=== PATIENT | female | born 1985 | race Caucasian/White ===

== ENCOUNTER 2019-12-11 17:27 | Emergency (ER) | payer SELFPAY ==
[2019-12-11 17:34] VITALS: BP 149/102; PULSE 84; RESP 18; TEMP 35.3; O2SAT 96
--- NOTE | 2019-12-11 18:02 | ED.GENADULT ---
HPI - General Adult General Chief complaint: Unspecified Stated complaint: food bolus stuck Time Seen by Provider: 12/11/19 17:42 Source: patient Mode of arrival: ambulatory Limitations: no limitations History of Present Illness HPI narrative: This is a 34-year-old female that presents the emergency department for feeling of food being stuck. Reports she was eating a piece of chocolate cake and feels like a piece of it is stuck in her throat. She has been able to drink water since. Denies any chest pain, abdominal pain, or vomiting. Related Data Allergies Allergy/AdvReac Type Severity Reaction Status Date / Time No Known Allergies Verified 06/27/10 14:48 Review of Systems Review of Systems: Narrative: CONSTITUTIONAL: Denies fever CARDIOVASCULAR: Denies chest pain GASTROINTESTINAL: Denies abdominal pain, nausea, vomiting All systems reviewed & are unremarkable except as noted in HPI and below PMFSH Family History Family History (Updated 10/05/13 @ 07:13 by DOCTOR UNKNOWN) Mother Family history of gallbladder disease Family history of rheumatoid arthritis Father Family history of gallbladder disease Sibling Family history of ulcerative colitis Other Diabetes mellitus Social History Social History Alcohol intake: current Gender identity (if verbalized by the patient): Female Exam Narrative: Exam Narrative: GENERAL: Well-appearing, well-nourished, and in no acute distress. HEAD: Normocephalic, atraumatic. EYES: EOMI. ENT: Mucous membranes moist. Oropharynx without tonsillar hypertrophy exudate or other lesions. NECK: Supple. No adenopathy or masses. CHEST: Clear to auscultation. No respiratory distress. No wheezes rales or rhonchi HEART: Regular rate and rhythm. No murmur heard. Normal peripheral pulses. EXTREMITIES: Normal range of motion. No edema. SKIN: Warm, dry, no rash. NEURO: No focal deficits. Alert and oriented x3. PSYCH: Normal mood and affect Course Vital Signs Vital signs: Vital Signs Temperature 95.5 F L 12/11/19 17:34 Pulse Rate 84 12/11/19 17:34 Respiratory Rate 18 12/11/19 17:34 Blood Pressure 149/102 H 12/11/19 17:34 Pulse Oximetry 96 12/11/19 17:34 Temperature 95.5 F L 12/11/19 17:34 Pulse Rate 84 12/11/19 17:34 Respiratory Rate 18 12/11/19 17:34 Blood Pressure 149/102 H 12/11/19 17:34 Pulse Oximetry 96 12/11/19 17:34 Medical Decision Making MDM Narrative Medical decision making narrative: Patient presents to the emergency department for feeling of food impaction. Reported she felt like something was stuck in her throat. She is able to tolerate secretions. She was able to drink Sprite without vomiting. Patient is stable and felt appropriate for further outpatient evaluation. She was given warnings to return to the ER Vital Signs Vital Signs: Vital Signs Temperature 95.5 F L 12/11/19 17:34 Pulse Rate 84 12/11/19 17:34 Respiratory Rate 18 12/11/19 17:34 Blood Pressure 149/102 H 12/11/19 17:34 Pulse Oximetry 96 12/11/19 17:34 Temperature 95.5 F L 12/11/19 17:34 Pulse Rate 84 12/11/19 17:34 Respiratory Rate 18 12/11/19 17:34 Blood Pressure 149/102 H 12/11/19 17:34 Pulse Oximetry 96 12/11/19 17:34 Critical Care Time Critical Care Time Critical Care Time: No Discharge Plan Discharge Clinical Impression: Feeling of foreign body in throat Patient Disposition: Home, Self-Care Condition: Stable Instructions: Food Impaction (ED) Additional Instructions: Return to the emergency department if you experience fever, vomiting, trouble swallowing, chest pain, or any other symptoms that are concerning to you Remain well-hydrated Follow-up with gastroenterology Follow-up/Referrals: Brian Villanueva MD [Physician] - 1 Day PHYSICIAN,VALIDATION ANALYST [Primary Care Provider] -
[2019-12-11] MEDS: GLUCAGON FOR INJ 1 MG VIAL IM (18:27)
--- NOTE | 2019-12-11 19:15 | PC.NURSE ---
Addendum entered by Mervat Gabriel RN 12/11/19 19:16: Report from YAMILE Mejia Original Note: Assumed care of pt. at this time. Report from YAMILE Samuel
[2019-12-11 19:25] VITALS: BP 131/77; PULSE 100; RESP 15; O2SAT 99
== END 2019-12-11 19:25 | disposition home or self-care (01) ==
PROVIDERS: Emergency Provider Emergency Medicine
DX: R09.89 Other specified symptoms and signs involving the circulatory and respiratory systems (principal)
CPT/HCPCS: 96372; 99283; J1610

== ENCOUNTER 2023-04-02 11:09 | Emergency (ER) | payer MEDICAID, SELFPAY ==
[2023-04-02 11:46] VITALS: BP 154/89; PULSE 82; RESP 16; TEMP 37.1; O2SAT 98
--- NOTE | 2023-04-02 12:06 | ED.URI ---
HPI - URI/Sore Throat General Chief Complaint: Upper Respiratory Infection Stated Complaint: sick, ear pressure Time Seen by Provider: 04/02/23 11:52 Source: patient and RN notes reviewed Mode of arrival: ambulatory Limitations: no limitations History of Present Illness HPI Narrative: Patient presents today with a 4 day history of intermittent sore throat, congestion and sinus pressure, slight cough, left ear pain. Denies fever shortness of breath. She is currently pain-free. She has tried no medication for symptoms prior to arrival. Daughter sick with similar symptoms. Related Data Home Medications Medication Instructions Recorded Confirmed bupropion HCl 300 mg 24 hr tablet, 300 mg PO DAILY 04/02/23 04/02/23 extended release cariprazine 3 mg capsule (Vraylar) 3 mg PO DAILY 04/02/23 04/02/23 sertraline 100 mg tablet 200 mg PO DAILY 04/02/23 04/02/23 Allergies Allergy/AdvReac Type Severity Reaction Status Date / Time No Known Allergies Verified 04/02/23 11:58 Review of Systems Review of Systems: CONSTITUTIONAL: Denies body aches, fever, chills, or sweats. EYES: Denies visual changes, redness, or discharge. ENT: Denies rhinorrhea. + congestion, sinus pressure, sore throat, left ear pain CARDIOVASCULAR: Denies chest pain, palpitations, or edema. RESPIRATORY: Denies dyspnea.+ cough GASTROINTESTINAL: Denies abdominal pain, nausea, vomiting, or diarrhea. GENITOURINARY: Denies dysuria or hematuria. SKIN: Denies rash, itching, or wounds. MUSCULOSKELETAL: Denies back pain, joint pain, or myalgia. NEUROLOGIC: Denies headache, numbness, tingling, or weakness. PSYCH: Denies depression or anxiety. [facility] Family History Family History Mother Family history of gallbladder disease Family history of rheumatoid arthritis Father Family history of gallbladder disease Sibling Family history of ulcerative colitis Other Diabetes mellitus Social History Social History Alcohol intake: current Gender identity (if verbalized by the patient): Female Comments At time of signature, I have reviewed and agree with nursing past medical, surgical, social and family history unless otherwise noted. Please see nursing chart for further information. There is no relevant family history pertinent to the presenting complaint Exam Narrative: GENERAL: Mildly ill-appearing, well-nourished, and in no acute distress. HEAD: Normocephalic, atraumatic. EYES: EOMI. No redness or drainage. Conjunctivae normal. ENT: Mucous membranes pink and moist. Nares congested. No rhinorrhea. Right TM normal. Left TM erythematous and bulging with purulent material. Throat normal. Uvula midline. NECK: Normal AROM. Supple. No lymphadenopathy. CHEST: No respiratory distress. Clear to auscultation. HEART: Regular rate and rhythm. No murmur appreciated. EXTREMITIES: Normal range of motion. No edema. SKIN: Warm, dry, no rash. Capillary refill normal. Normal skin turgor. NEURO: No focal deficits. Alert and oriented x3. Gait steady. PSYCH: Normal affect. No signs of depression or anxiety. Course Course Level of Care: Express Care Visit Vital Signs Vital signs: Vital Signs Temperature 98.7 F 04/02/23 11:46 Pulse Rate 82 04/02/23 11:46 Respiratory Rate 16 04/02/23 11:46 Blood Pressure 154/89 H 04/02/23 11:46 Pulse Oximetry 98 04/02/23 11:46 Oxygen Delivery Room Air 04/02/23 11:46 Temperature 98.7 F 04/02/23 11:46 Pulse Rate 82 04/02/23 11:46 Respiratory Rate 16 04/02/23 11:46 Blood Pressure 154/89 H 04/02/23 11:46 Pulse Oximetry 98 04/02/23 11:46 Oxygen Delivery Room Air 04/02/23 11:46 Reviewed MDM - URI/Sore Throat MDM Narrative Medical decision making narrative: Testing is negative. Exam consistent with left otitis media and patient will be treated with
== END 2023-04-02 12:30 | disposition home or self-care (01) ==
PROVIDERS: Emergency Provider Nurse Practitioner
DX: J06.9 Acute upper respiratory infection, unspecified (principal); H66.002 Acute suppurative otitis media without spontaneous rupture of ear drum, left ear; Z20.822 Contact with and (suspected) exposure to COVID-19; F41.9 Anxiety disorder, unspecified; F32.A Depression, unspecified
CPT/HCPCS: 87081; 87426; 87804; 87880; 99213; G0463

== ENCOUNTER 2023-07-18 18:10 | Emergency (ER) | payer BC, SELFPAY ==
[2023-07-18 18:26] VITALS: BP 126/80; PULSE 113; RESP 18; TEMP 36.3; O2SAT 99
--- NOTE | 2023-07-18 18:59 | ED.GENADULT ---
HPI - General Adult General Chief complaint: Upper Respiratory Infection Stated complaint: Sore Throat,Cough,Headache Source: patient Mode of arrival: ambulatory Limitations: no limitations History of Present Illness HPI narrative: Pt presents for evaluation of sore throat since yesterday. She also has a frontal headache that she describes as woozy , postnasal drainage, sinus congestion, mild subjective fever and mild productive cough of clear sputum. She denies any nausea, vomiting, diarrhea. Her daughter tested positive for strep four days ago. She is not taking any medications to assist with her symptoms. She does not smoke. Related Data Home Medications Medication Instructions Recorded Confirmed bupropion HCl 300 mg 24 hr tablet, 300 mg PO DAILY 04/02/23 07/18/23 extended release cariprazine 3 mg capsule (Vraylar) 3 mg PO DAILY 04/02/23 07/18/23 sertraline 100 mg tablet 200 mg PO DAILY 04/02/23 07/18/23 atomoxetine 40 mg capsule 40 mg PO DAILY 07/18/23 07/18/23 fluoxetine 40 mg capsule 40 mg PO DAILY 07/18/23 07/18/23 hydroxyzine HCl 25 mg tablet 25 mg PO DIRECTED 07/18/23 07/18/23 Allergies Allergy/AdvReac Type Severity Reaction Status Date / Time No Known Allergies Verified 07/18/23 18:15 Review of Systems Review of Systems: CONSTITUTIONAL: Reports mild subjective low-grade fever. Denies chills, or sweats. EYES: Denies visual changes, redness, or discharge. ENT: Reports sore throat, sinus congestion and postnasal drainage. Denies otalgia. CARDIOVASCULAR: Denies chest pain or palpitations RESPIRATORY: Reports cough. Denies SOB GASTROINTESTINAL: Denies abdominal pain, nausea, vomiting, or diarrhea. GENITOURINARY: Denies dysuria or hematuria. SKIN: Denies rash or itching. MUSCULOSKELETAL: Denies back pain, joint pain, or myalgia. NEUROLOGIC: Reports headache. Denies numbness, dizziness, or weakness. PSYCHIATRIC: Denies anxiety or depression. [facility] Past Medical History Medical History Bipolar disorder Surgical History Surgical History No pertinent past surgical history Family History Family History Mother Family history of gallbladder disease Family history of rheumatoid arthritis Father Family history of gallbladder disease Sibling Family history of ulcerative colitis Other Diabetes mellitus Social History Social History Alcohol intake: current Substance use: former Substance use type: marijuana Living arrangements: with family Gender identity (if verbalized by the patient): Female Spiritual care concerns: No Exam Narrative: GENERAL: Well-appearing, well-nourished, and in no acute distress. HEAD: Normocephalic, atraumatic. EYES: PERRLA and EOMI. ENT: Nares clear, no rhinorrhea or epistaxis. Mucous membranes moist. There is posterior pharyngeal erythema without exudate. Uvula is midline. Bilateral TMs pearly nunes nonbulging NECK: Supple. No adenopathy or masses. No carotid bruits or JVD CHEST: Clear to auscultation. No respiratory distress. No wheezes rales or rhonchi HEART: Regular rate and rhythm. No murmur heard. Normal peripheral pulses. ABDOMEN: Soft, nontender, nondistended, normal active bowel sounds. EXTREMITIES: Normal range of motion. No edema. SKIN: Warm, dry, no rash. NEURO: No focal deficits. Alert and oriented x3. PSYCH: Normal mood and affect. Course Course Emergency Course: this is a 38-year-old female who presented for evaluation of sore throat after recent strep exposure. Rapid strep was negative. However based upon recent exposure patient and I elected to proceed with antibiotic therapy through shared decision making. Follow-up with primary provider. [id number] agents for sym
== END 2023-07-18 19:05 | disposition home or self-care (01) ==
PROVIDERS: Emergency Provider Nurse Practitioner
DX: J02.9 Acute pharyngitis, unspecified (principal); Z20.818 Contact with and (suspected) exposure to other bacterial communicable diseases
CPT/HCPCS: 87081; 87880; 99213; G0463

== ENCOUNTER 2023-10-06 15:13 | Emergency (ER) | payer BC, SELFPAY ==
--- NOTE | 2023-10-06 15:14 | ED.URI ---
HPI - URI/Sore Throat General Chief Complaint: Upper Respiratory Infection Stated Complaint: sore throat,left ear issue Time Seen by Provider: 10/06/23 15:13 Source: patient Mode of arrival: ambulatory Limitations: no limitations History of Present Illness HPI Narrative: Melanie is a 38-year-old female patient presenting to the clinic today with complaints of sore throat and left ear pain. Reports the sore throat started last night and the left ear pain started this morning. Has been trying topical throat spray to help alleviate her symptoms. Did a rapid COVID test this morning and was negative. MD elicited complaint: sore throat and other (Ear pain) Related Data Home Medications Medication Instructions Recorded Confirmed cariprazine 3 mg capsule (Vraylar) 3 mg PO DAILY 04/02/23 10/06/23 atomoxetine 40 mg capsule 40 mg PO DAILY 07/18/23 10/06/23 fluoxetine 40 mg capsule 40 mg PO DAILY 07/18/23 10/06/23 hydroxyzine HCl 25 mg tablet 25 mg PO DIRECTED 07/18/23 10/06/23 bupropion HCl 150 mg 24 hr tablet, 150 mg PO DAILY 10/06/23 10/06/23 extended release lurasidone 40 mg tablet 40 mg PO DAILY 10/06/23 10/06/23 Allergies Allergy/AdvReac Type Severity Reaction Status Date / Time No Known Allergies Verified 10/06/23 15:15 Review of Systems Review of Systems: Pertinent positives per HPI. Patient denies any fever, chills, rash, headache, visual changes, dizziness, cough, shortness of breath, chest pain, palpitations, nausea, vomiting, diarrhea, constipation, abdominal pain, or any urinary issues. [facility] Past Medical History Medical History Bipolar disorder Surgical History Surgical History No pertinent past surgical history Family History Family History Mother Family history of gallbladder disease Family history of rheumatoid arthritis Father Family history of gallbladder disease Sibling Family history of ulcerative colitis Other Diabetes mellitus Social History Social History Alcohol intake: current Substance use: former Substance use type: marijuana Living arrangements: with family Gender identity (if verbalized by the patient): Female Spiritual care concerns: No Comments At the time of my signature, I reviewed and agree with the nursing past medical, surgical, social, and family history. There is no relevant family history pertinent to the patient complaint. Exam Narrative: General: Well-developed, well nourished, in no apparent distress Head: Normocephalic, atraumatic Eyes: Pupils equally round and reactive to light bilaterally, EOM intact, sclera and conjunctive clear, no discharge, lids normal Ears: TMs intact and congested with mild bulging, ear canals clear, no drainage, grossly hearing normal. Nose: Nares patent, no discharge, no inflammation, no sinus tenderness. Mouth: Oral pharynx mild red without lesions or masses, good dentition, MMM. Neck: Supple, trachea midline, no enlargement of anterior or posterior cervical nodes, no thyroid masses or goiter palpable. Cardio: Regular rate and rhythm, s1 and s2 normal, no murmur appreciated. Resp: Clear to auscultation bilaterally, no rhonchi, rales, wheezing or rubs Course Course Emergency Course: Portions of this record may have been created with voice recognition software. Level of Care: Express Care Visit Vital Signs Vital signs: Vital Signs Temperature 36.9 C 10/06/23 15:21 Pulse Rate 99 10/06/23 15:21 Respiratory Rate 16 10/06/23 15:21 Blood Pressure 152/101 H 10/06/23 15:21 Pulse Oximetry 99 10/06/23 15:21 Oxygen Delivery Room Air 10/06/23 15:21 Temperature 36.9 C 10/06/23 15:21 Pulse Rate 99 10/06/23 15:21 Respiratory Rate 16 09/09
[2023-10-06 15:21] VITALS: BP 152/101; PULSE 99; RESP 16; TEMP 36.9; O2SAT 99
[2023-10-06 15:36] LABS: EDSTREPNEGPOS1 Negative
== END 2023-10-06 15:45 | disposition home or self-care (01) ==
PROVIDERS: Emergency Provider Nurse Practitioner Family
DX: H92.02 Otalgia, left ear (principal); H69.92 Unspecified Eustachian tube disorder, left ear; J02.9 Acute pharyngitis, unspecified; F31.9 Bipolar disorder, unspecified
CPT/HCPCS: 87081; 87880; 99213; G0463

== ENCOUNTER 2023-11-16 10:16 | Emergency (ER) | payer BC, SELFPAY ==
[2023-11-16 10:25] VITALS: BP 142/100; PULSE 98; RESP 16; TEMP 36.3; O2SAT 99
--- NOTE | 2023-11-16 10:25 | ED.URI ---
HPI - URI/Sore Throat General Chief Complaint: Upper Respiratory Infection Stated Complaint: Sinus Time Seen by Provider: 11/16/23 10:30 Source: patient Mode of arrival: ambulatory Limitations: no limitations History of Present Illness HPI Narrative: Patient is a 38-year-old female who presents with worsening sinus congestion and cough over the last week. Patient has not taken any allergy or over the counter medicine for symptoms. Patient states throat hurts due to drainage. Reports mucus is now yellow green incentive clear. Denies any sinus pressure, ear pain, fever, chills, nausea, vomiting, diarrhea. Related Data Home Medications Medication Instructions Recorded Confirmed cariprazine 3 mg capsule (Vraylar) 3 mg PO DAILY 04/02/23 11/16/23 atomoxetine 40 mg capsule 40 mg PO DAILY 07/18/23 11/16/23 fluoxetine 40 mg capsule 40 mg PO DAILY 07/18/23 11/16/23 hydroxyzine HCl 25 mg tablet 50 mg PO DAILY 07/18/23 11/16/23 bupropion HCl 150 mg 24 hr tablet, 150 mg PO DAILY 10/06/23 11/16/23 extended release lurasidone 40 mg tablet 40 mg PO DAILY 10/06/23 11/16/23 Allergies Allergy/AdvReac Type Severity Reaction Status Date / Time No Known Allergies Verified 11/16/23 10:48 Review of Systems Review of Systems: All systems reviewed & are unremarkable except as noted in HPI and below Constitutional: Constitutional: Denies body ache(s), Denies chills, Denies fatigue, Denies fever(s), Denies headache(s), Denies malaise and Denies weakness Eyes: Eyes: Denies blurry vision, Denies itchy eyes and Denies loss of vision ENT: Denies otalgia, Denies headache(s), Reports nasal congestion, Denies sinus pain and Reports sore throat Cardiovascular: Cardiovascular: Denies chest pain, Denies irregular heart rhythm and Denies dyspnea Respiratory: Respiratory: Reports cough and Denies dyspnea Gastrointestinal: Gastrointestinal: Denies abdominal pain, Denies diarrhea, Denies nausea and Denies vomiting Musculoskeletal: Musculoskeletal: Denies back pain, Denies myalgias and Denies arthralgias Integumentary/Breasts: Skin/Breast: Denies pruritus and Denies rash Neurologic: Denies headache(s), Denies loss of vision and Denies weakness Psychiatric: Psychiatric: Reports no additional psychiatric complaints Endocrine: Endocrine: Denies fatigue Allergic/Immunologic: Allergic/Immunologic: Denies itchy eyes PMFSH Past Medical History Medical History Bipolar disorder Surgical History Surgical History No pertinent past surgical history Family History Family History Mother Family history of gallbladder disease Family history of rheumatoid arthritis Father Family history of gallbladder disease Sibling Family history of ulcerative colitis Other Diabetes mellitus Social History Social History Alcohol intake: current Substance use: former Substance use type: marijuana Living arrangements: with family Gender identity (if verbalized by the patient): Female Spiritual care concerns: No Comments At time of signature, agree with nursing past medical, surgical, social and family history. There is no relevant family history pertinent to the presenting complaint. Exam Const: General: cooperative, healthy appearing, comfortable, no acute distress and well nourished Nutritional Appearance: well nourished Orientation/consciousness: patient oriented x3 Limitations: no limitations HENMT: Head: normal to inspection, normocephalic and atraumatic Ears: hearing grossly normal bilaterally, external ears normal, TM's normal bilaterally, EAC's normal and no periauricular adenopathy Face/Nose/Sinus: Normal external nose present, Abnormal mucous membranes and turbinates present erythematous bilateral and diffus
== END 2023-11-16 11:10 | disposition home or self-care (01) ==
PROVIDERS: Emergency Provider Nurse Practitioner Family
DX: J06.9 Acute upper respiratory infection, unspecified (principal); F31.9 Bipolar disorder, unspecified
CPT/HCPCS: 99213; G0463

== ENCOUNTER 2024-01-25 19:10 | Emergency (ER) | payer BC, SELFPAY ==
[2024-01-25 19:18] VITALS: BP 133/75; PULSE 89; RESP 16; TEMP 36.5; O2SAT 99
--- NOTE | 2024-01-25 19:19 | ED.URI ---
HPI - URI/Sore Throat General Chief Complaint: Upper Respiratory Infection Stated Complaint: Sinus/Cough Time Seen by Provider: 01/25/24 19:13 Source: patient Mode of arrival: ambulatory Limitations: no limitations History of Present Illness HPI Narrative: Patient is a 38-year-old female who presents with sinus congestion and cough since Wednesday. 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 Denies any fever, chills, nausea vomiting, diarrhea. Has taken DayQuil. Related Data Home Medications ?Medication ?Instructions ?Recorded ?Confirmed ?Last Taken ?Type cariprazine 3 mg capsule (Vraylar) 3 mg PO DAILY 04/02/23 11/16/23 Unknown History atomoxetine 40 mg capsule 40 mg PO DAILY 07/18/23 11/16/23 Unknown History fluoxetine 40 mg capsule 40 mg PO DAILY 07/18/23 11/16/23 Unknown History hydroxyzine HCl 25 mg tablet 50 mg PO DAILY 07/18/23 11/16/23 Unknown History bupropion HCl 150 mg 24 hr tablet, 150 mg PO DAILY 10/06/23 11/16/23 Unknown History extended release lurasidone 40 mg tablet 40 mg PO DAILY 10/06/23 11/16/23 Unknown History Allergies Allergy/AdvReac Type Severity Reaction Status Date / Time No Known Allergies Verified 11/16/23 10:48 Review of Systems Review of Systems: All systems reviewed & are unremarkable except as noted in HPI and below Constitutional: Constitutional: Denies body ache(s), Denies chills, Denies fatigue, Denies fever(s), Denies headache(s), Denies malaise and Denies weakness Eyes: Eyes: Denies blurry vision, Denies itchy eyes and Denies loss of vision ENT: Denies otalgia, Denies headache(s), Reports nasal congestion, Denies sinus pain and Denies sore throat Cardiovascular: Cardiovascular: Denies chest pain, Denies irregular heart rhythm and Denies dyspnea Respiratory: Respiratory: Reports cough and Denies dyspnea Gastrointestinal: Gastrointestinal: Denies abdominal pain, Denies diarrhea, Denies nausea and Denies vomiting Musculoskeletal: Musculoskeletal: Denies back pain, Denies myalgias and Denies arthralgias Integumentary/Breasts: Skin/Breast: Denies pruritus and Denies rash Neurologic: Denies headache(s), Denies loss of vision and Denies weakness Psychiatric: Psychiatric: Reports no additional psychiatric complaints Endocrine: Endocrine: Denies fatigue Allergic/Immunologic: Allergic/Immunologic: Denies itchy eyes PMFSH Past Medical History Medical History Bipolar disorder Surgical History Surgical History No pertinent past surgical history Family History Family History Mother Family history of gallbladder disease Family history of rheumatoid arthritis Father Family history of gallbladder disease Sibling Family history of ulcerative colitis Other Diabetes mellitus Social History Social History Alcohol intake: current Substance use: former Substance use type: marijuana Living arrangements: with family Gender identity (if verbalized by the patient): Female Spiritual care concerns: No Comments At time of signature, agree with nursing past medical, surgical, social and family history. There is no relevant family history pertinent to the presenting complaint. Exam Const: General: cooperative, healthy appearing, comfortable, no acute distress and well nourished Nutritional Appearance: well nourished Orientation/consciousness: patient oriented x3 Limitations: no limitations HENMT: Head: normal to inspection, normocephalic and atraumatic Ears: hearing grossly normal bilaterally, external ears normal, TM's normal bilaterally, no periauricular adenopathy and Abnormal EAC present erythema bilateral Face/Nose/Sinus: Normal external nose present, Abnormal mucous membranes and turbinates present erythematous bilateral and diffuse, normal facial exam, sinuses nontender and face symmetric Face and sinus: normal facial exam, sinuses nontender and face symmetric Mouth: Yes Normal oral and palatal mucosa present, Yes lip normal, Yes tongue normal, Yes Normal salivary glands and ducts present, Yes oropharynx normal and Yes moist mucous membranes Teeth and gingiva: dentition normal Throat: posterior oropharynx normal, tonsils normal and uvula midline Eyes: General: appearance normal, both eyes and all related structures Alignment and Position: alignment normal and position normal Periorbital: periorbital findings normal Eyelids: eyelids normal Pupils: Equal, round and reactive pupils present Neck: Neck: normal visual inspection, full ROM, no lymphadenopathy and supple Chest: Chest palpation & inspection: normal inspection of the chest and normal palpation of entire chest wall Resp: Effort & Inspection: normal respiratory effort and able to speak in complete sentences Auscultation: clear to auscultation bilaterally, no crackles, no rales, no rhonchi and no wheezes Cardio: Rate: regular rate Rhythm: regular rhythm Heart sounds: S1 normal heart sound present and S2 normal heart sound present GI: Inspection: normal to inspection Skin: General skin exam: normal color and no rashes or lesions noted Neuro: General: patient oriented x3 and moves all extremities Cranial nerves: Yes Equal, round and reactive pupils present Speech: normal speech Gait exam (Neuro): Normal gait present Extrem: General: normal to inspection, full ROM and no edema Psych: Appearance: grossly normal and well kempt Mental Status: mental status grossly normal Speech and movement: Normal speech and movement present Affect: normal affect Attitude: cooperative Thought process: Normal thought process present Course Course Emergency Course: Discharge instructions reviewed with patient, as well as provided in writing per nursing staff. The instructions also include specific and strict return/GO TO THE ER as well as f/u information. All questions have been answered, and the patient deny any further questions with discharge and discharge plan. Portions of this record may have been created with voice recognition software Level of Care: Express Care Visit Vital Signs Vital signs: Vital Signs Temperature 36.5 C 01/25/24 19:18 Pulse Rate 89 01/25/24 19:18 Respiratory Rate 16 01/25/24 19:18 Blood Pressure 133/75 01/25/24 19:18 Pulse Oximetry 99 01/25/24 19:18 Oxygen Delivery Room Air 01/25/24 19:18 Temperature 36.5 C 01/25/24 19:18 Pulse Rate 89 01/25/24 19:18 Respiratory Rate 16 01/25/24 19:18 Blood Pressure 133/75 01/25/24 19:18 Pulse Oximetry 99 01/25/24 19:18 Oxygen Delivery Room Air 01/25/24 19:18 Reviewed MDM - URI/Sore Throat MDM Narrative Medical decision making narrative: Pt well hydrated appearing, in no respiratory distress, hemodynamically stable. Recommend supportive care. The patient is stable at time of discharge the clinical impression was discussed and the patient was given the opportunity to ask questions, which were addressed as completely as possible given the information available at present. Anticipatory guidance and return to care precautions were discussed and the importance of primary care follow-up was stressed and encouraged. The patient voiced understanding of the plan, indications to return, and the need for follow-up. Differential diagnosis considered: Hennessy virus, strep pharyngitis, allergic rhinitis, upper respiratory tract infection, sinusitis, rhinosinusitis, nasopharyngitis. viral pharyngitis, otitis media, otitis externa, otitis effusion, foreign body, cerumen impaction, viral syndrome, and influenza.? Exam findings show no acute concerns or changes; patient is non-toxic appearing and is in no distress.? Patient is appropriate for outpatient treatment and follow-up.? Medical Records Attestation: I reviewed the patient's medical records. Lab Data Attestation: I reviewed the patient's lab results. Labs: Lab Results 01/25/24 01/25/24 Range/Units 19:40 19:45 POC Influenza A Ag Negative (Negative) POC Influenza B Ag Negative (Negative) POC SARS CoV-2 Ag Negative (Negative) Discharge Plan Discharge Clinical Impression: Upper respiratory infection Qualifiers: URI type: unspecified viral URI Qualified Code(s): J06.9 - Acute upper respiratory infection, unspecified Patient Disposition: Home, Self-Care Condition: Stable Instructions: Upper Respiratory Infection (ED) Additional Instructions: Your Covid and flu are both negative Your symptoms are likely due to a viral illness, which is not treated with antibiotics. Viral symptoms can be present for up to a few weeks. -Alternate Tylenol and Motrin per package directions for fever or pain. -Antihistamine medication such as Benadryl/Zyrtec at night and Claritin/Arin during the day can help improve symptoms. -Use Flonase twice a day for 5 days then daily to help reduce the inflammation and dry up your sinuses. -You can also use Sudafed behind the pharmacy counter(12 or 24 hour). Be sure to drink plenty of water with these medications at least 8 ounces with every dose and it is important to drink 8 to 10 glasses of water per day. Water is a natural decongestant -Eat and drink things that are easy to swallow, like tea or soup, or popsicles. -Oral rinses such as: Salt water gargles and/or may use topical anesthetic (eg. Chloraseptic spray) or lozenges to relieve dryness or throat pain). -Frequent hand washing or hand board certified behavioral analyst is one of the best ways to prevent spread of infection. -Using a vaporizer or humidifier at night will also help thin secretions and help with coughing up phlegm. -Follow up with primary care provider in 3-5 days if condition is not improving - For new or worsening symptoms go directly to the nearest ER Patient Language: Kazakh Prescriptions: New benzonatate 100 mg capsule 100 mg PO BID PRN (Reason: cough) Qty: 14 0RF cetirizine 10 mg tablet 10 mg PO HS Qty: 30 0RF fluticasone propionate [Flonase Allergy Relief] 50 mcg/actuation spray,suspension 1 spray intranasal DAILY Qty: 16 0RF Rx Instructions: administer into each nostril loratadine 10 mg tablet 10 mg PO DAILY Qty: 30 0RF No Action bupropion HCl 150 mg tablet extended release 24 hr 150 mg PO DAILY lurasidone 40 mg tablet 40 mg PO DAILY cetirizine 10 mg tablet 10 mg PO HS Qty: 30 0RF fluticasone propionate [Flonase Allergy Relief] 50 mcg/actuation spray,suspension 1 spray intranasal DAILY Qty: 16 0RF Rx Instructions: administer into each nostril loratadine 10 mg tablet 10 mg PO DAILY Qty: 30 0RF Vraylar 3 mg capsule 3 mg PO DAILY fluoxetine 40 mg capsule 40 mg PO DAILY hydroxyzine HCl 25 mg tablet 50 mg PO DAILY atomoxetine 40 mg capsule 40 mg PO DAILY Follow-up/Referrals: PHYSICIAN,PICKING TECH [Primary Care Provider] - Evan Montgomery MD [Physician] - 3 Days Time of Disposition: 19:41
[2024-01-25 19:47] LABS: EDCOVIDSCREEN Negative (Negative)
[2024-01-25 19:48] LABS: EDINFLUASCREEN Negative (Negative); EDINFLUBSCREEN Negative (Negative)
== END 2024-01-25 19:50 | disposition home or self-care (01) ==
PROVIDERS: Emergency Provider Nurse Practitioner Family
DX: J06.9 Acute upper respiratory infection, unspecified (principal); Z20.822 Contact with and (suspected) exposure to COVID-19
CPT/HCPCS: 87426; 87804; 99213; G0463

== ENCOUNTER 2024-03-08 14:11 | Emergency (ER) | payer BC, SELFPAY ==
--- NOTE | ~2024-03-08 | XR_ITS ---
EXAMINATION: XR chest 2V Exam Date/Time: 03/08/2024 14:59 REJECTED ITEMS CLERK HISTORY: cough wheezing non smoker Comparison: None. RESULT: Lines, tubes, and devices: None. Lungs and pleura: Low volumes with crowding, otherwise clear. Cardiomediastinal silhouette: Unremarkable. Other: No acute osseous or upper abdominal finding. IMPRESSION: No acute cardiopulmonary process. Reviewed, dictated and finalized at location K. CTED ITEMS CLERK
[2024-03-08 14:25] VITALS: BP 127/90; PULSE 92; RESP 16; TEMP 35.7; O2SAT 99
--- NOTE | 2024-03-08 14:52 | ED.URI ---
HPI - URI/Sore Throat General Chief Complaint: Upper Respiratory Infection Stated Complaint: cough,chest congestion still present Time Seen by Provider: 03/08/24 14:39 Source: patient and RN notes reviewed Mode of arrival: ambulatory Limitations: no limitations History of Present Illness HPI Narrative: Patient presents today complaining of 4 day history of cough, chest congestion. She was diagnosed with influenza a 3 days ago. States most of her symptoms have resolved with a cough chest congestion, and wheezing have persisted. Wheezing is worse when lying flat. She has tried some cold and flu medicine with some mild relief. Related Data Home Medications ?Medication ?Instructions ?Recorded ?Confirmed ?Last Taken ?Type fluoxetine 40 mg capsule 40 mg PO DAILY 07/18/23 03/05/24 Unknown History hydroxyzine HCl 25 mg tablet 50 mg PO DAILY 07/18/23 03/05/24 Unknown History bupropion HCl 150 mg 24 hr tablet, 150 mg PO DAILY 10/06/23 03/05/24 Unknown History extended release lurasidone 40 mg tablet 40 mg PO DAILY 10/06/23 03/05/24 Unknown History Allergies Allergy/AdvReac Type Severity Reaction Status Date / Time No Known Allergies Allergy Verified 03/08/24 14:41 Review of Systems Review of Systems: CONSTITUTIONAL: Denies body aches, fever, chills, or sweats. EYES: Denies visual changes, redness, or discharge. ENT: Denies rhinorrhea, congestion, sore throat, or otalgia. CARDIOVASCULAR: Denies chest pain, palpitations, or edema. RESPIRATORY: + cough, chest congestion, wheezing GASTROINTESTINAL: Denies abdominal pain, nausea, vomiting, or diarrhea. GENITOURINARY: Denies dysuria or hematuria. SKIN: Denies rash, itching, or wounds. MUSCULOSKELETAL: Denies back pain, joint pain, or myalgia. NEUROLOGIC: Denies headache, numbness, tingling, or weakness. PSYCH: Denies depression or anxiety. [facility] Past Medical History Medical History Bipolar disorder Surgical History Surgical History No pertinent past surgical history Family History Family History Mother Family history of gallbladder disease Family history of rheumatoid arthritis Father Family history of gallbladder disease Sibling Family history of ulcerative colitis Other Diabetes mellitus Social History Social History Alcohol intake: current Substance use: former Substance use type: marijuana Living arrangements: with family Gender identity (if verbalized by the patient): Female Spiritual care concerns: No Comments At time of signature, I have reviewed and agree with nursing past medical, surgical, social and family history unless otherwise noted. Please see nursing chart for further information. There is no relevant family history pertinent to the presenting complaint Exam Narrative: GENERAL: Ill-appearing, well-nourished, and in no acute distress. HEAD: Normocephalic, atraumatic. EYES: EOMI. No redness or drainage. Conjunctivae normal. ENT: Mucous membranes pink and moist. Nares clear. No rhinorrhea. TMs normal bilaterally. Throat normal. Uvula midline. NECK: Normal AROM. Supple. No lymphadenopathy. CHEST: No respiratory distress. Crackling in the bilateral lower lobes. Inhalation elicits coughing episodes. HEART: Regular rate and rhythm. No murmur appreciated. EXTREMITIES: Normal range of motion. No edema. SKIN: Warm, dry, no rash. Capillary refill normal. Normal skin turgor. NEURO: No focal deficits. Alert and oriented x3. Gait steady. PSYCH: Normal affect. No signs of depression or anxiety. Course Course Level of Care: Express Care Visit Vital Signs Vital signs: Vital Signs Temperature 96.3 F L 03/08/24 14:25 Pulse Rate 92 03/08/24 14:25 Respiratory Rate 16 03/08/24 14:25 Blood Pressure 127/90 03/08/24 14:25 Pulse Oximetry 99 03/08/24 14:25 Oxygen Delivery Room Air 03/08/24 14:25 Temperature 96.3 F L 03/08/24 14:25 Pulse Rate 92 03/08/24 14:25 Respiratory Rate 16 03/08/24 14:25 Blood Pressure 127/90 03/08/24 14:25 Pulse Oximetry 99 03/08/24 14:25 Oxygen Delivery Room Air 03/08/24 14:25 Reviewed MDM - URI/Sore Throat MDM Narrative Medical decision making narrative: Chest x-rays negative. Patient will be placed on a short course of prednisone and an albuterol inhaler to help with her symptoms. Education given. Anticipatory guidance given. Differential Diagnosis Differential diagnosis: Likely upper respiratory infection, viral infection, bronchitis and other (Pneumonia) Imaging Data Radiologist's impression: ITS Impressions Chest X-Ray 03/08/24 15:07 IMPRESSION: No acute cardiopulmonary process. Critical Care Time Critical Care Time Critical Care Time: No Discharge Plan Discharge Clinical Impression: Bronchitis Patient Disposition: Home, Self-Care Condition: Stable Instructions: Acute Bronchitis (ED) Additional Instructions: Your chest x-ray is negative for pneumonia. Please take the prednisone and use albuterol inhaler as directed for your cough and wheezing symptoms. Continue [id number] medication as needed. Follow-up with your PCP next week if symptoms are not improving. Go to the ER immediately if symptoms worsen. Your blood pressure was elevated above 120/80 today at Urgent Care. This puts you above the threshold for follow up. Please schedule a followup visit with your personal physician as soon as possible, for further evaluation and treatment. Even blood pressure exceeding 120/80 may indicate pre-hypertension. Patient Language: Armenian Prescriptions: New albuterol sulfate 90 mcg/actuation HFA aerosol inhaler 2 inh inhalation Q4-6H PRN (Reason: shortness of breath or wheezing) Qty: 8.5 0RF (DME) B[employer]he[employer] MDI Spacer Spacer See Rx Instructions .ROUTE .MEDSUPPLY Qty: 1 0RF Rx Instructions: As directed prednisone 50 mg tablet 50 mg PO DAILY 5 Days Qty: 5 0RF No Action bupropion HCl 150 mg tablet extended release 24 hr 150 mg PO DAILY lurasidone 40 mg tablet 40 mg PO DAILY cetirizine 10 mg tablet 10 mg PO HS Qty: 30 0RF fluticasone propionate [Flonase Allergy Relief] 50 mcg/actuation spray,suspension 1 spray intranasal DAILY Qty: 16 0RF Rx Instructions: administer into each nostril loratadine 10 mg tablet 10 mg PO DAILY Qty: 30 0RF cetirizine 10 mg tablet 10 mg PO HS Qty: 30 0RF fluticasone propionate [Flonase Allergy Relief] 50 mcg/actuation spray,suspension 1 spray intranasal DAILY Qty: 16 0RF Rx Instructions: administer into each nostril loratadine 10 mg tablet 10 mg PO DAILY Qty: 30 0RF fluoxetine 40 mg capsule 40 mg PO DAILY hydroxyzine HCl 25 mg tablet 50 mg PO DAILY oseltamivir [Tamiflu] 75 mg capsule 75 mg PO Q12H 5 Days Qty: 10 0RF Follow-up/Referrals: UNKNOWN,DOCTOR [Primary Care Provider] - Stand Alone Forms: Work/School Release IP Time of Disposition: 15:29
== END 2024-03-08 15:35 | disposition home or self-care (01) ==
PROVIDERS: Emergency Provider Nurse Practitioner
DX: J40 Bronchitis, not specified as acute or chronic (principal); F31.9 Bipolar disorder, unspecified
CPT/HCPCS: 71046; 99213; G0463

== ENCOUNTER 2024-05-17 10:13 | Emergency (ER) | payer BC, SELFPAY ==
--- NOTE | 2024-05-17 10:26 | ED.URI ---
HPI - URI/Sore Throat General Chief Complaint: Upper Respiratory Infection Stated Complaint: congested,sore throat COVID exp Time Seen by Provider: 05/17/24 11:00 Source: patient and RN notes reviewed Mode of arrival: ambulatory Limitations: no limitations History of Present Illness HPI Narrative: 38-year-old female presents with concern for fever congestion, sore throat, exposure to COVID. She denies taking any medications for her symptoms. Denies fever, body aches, chills, sweats. MD elicited complaint: sore throat Related Data Home Medications ?Medication ?Instructions ?Recorded ?Confirmed ?Last Taken ?Type atomoxetine 80 mg capsule 80 mg PO DAILY 05/17/24 05/17/24 Unknown History (Strattera) bupropion HCl 300 mg 24 hr tablet, 300 mg PO DAILY 05/17/24 05/17/24 Unknown History extended release fluoxetine 40 mg capsule 40 mg PO QPM 05/17/24 05/17/24 Unknown History hydroxyzine HCl 25 mg tablet 25 mg PO DAILY 05/17/24 05/17/24 Unknown History lurasidone 40 mg tablet 40 mg PO DAILY 05/17/24 05/17/24 Unknown History Allergies Allergy/AdvReac Type Severity Reaction Status Date / Time No Known Allergies Allergy Verified 05/17/24 10:24 Review of Systems Review of Systems: CONSTITUTIONAL: Denies malaise, chills, sweats, or fever. EYES: Denies visual changes, redness, or discharge. ENT: Reports rhinorrhea, congestion, and sore throat. CARDIOVASCULAR: Denies chest pain, palpitations, or edema. RESPIRATORY: Denies cough. Denies dyspnea. GASTROINTESTINAL: Denies abdominal pain, nausea, vomiting, diarrhea SKIN: Denies rash or itching. MUSCULOSKELETAL: Denies myalgia. NEUROLOGIC: Denies headache. All systems reviewed & are unremarkable except as noted in HPI and below PMFSH Past Medical History Medical History Bipolar disorder Surgical History Surgical History No pertinent past surgical history Family History Family History Mother Family history of gallbladder disease Family history of rheumatoid arthritis Father Family history of gallbladder disease Sibling Family history of ulcerative colitis Other Diabetes mellitus Social History Social History Alcohol intake: current Substance use: former Substance use type: marijuana Living arrangements: with family Gender identity (if verbalized by the patient): Female Spiritual care concerns: No Comments At time of signature, agree with nursing past medical, surgical, social and family history. There is no relevant family history pertinent to the presenting complaint Exam Narrative: GENERAL: Well-appearing, well-nourished, and in no acute distress. HEAD: Normocephalic EYES: PERRLA, conjunctivae clear ENT: Nares clear, clear discharge. Mucous membranes moist. TM pearly nunes with dull light reflex bilaterally; no tragal tenderness. Oropharynx not erythematous without lesions. Tonsils not enlarged and without exudate, no drooling, no hoarseness, no trismus, uvula midline. NECK: Supple. No lymphadenopathy CHEST: Clear to auscultation, breath sounds equal. No wheezing, rhonchi, rales, or stridor. No respiratory distress, speaks in full sentences. HEART: Regular rate and rhythm. No murmur heard. SKIN: Warm, dry, no rash. NEURO: Alert and oriented x3. PSYCH: Normal mood and affect Course Course Emergency Course: Patient is aware of diagnosis, understands and agrees to treatment plan. Anticipatory guidance given. Patient agrees to follow-up as directed and is aware of reasons to seek care at the emergency department. Portions of this record may have been created with voice recognition software Level of Care: Express Care Visit Vital Signs Vital signs: Reviewed. MDM - URI/Sore Throat MDM Narrative Medical decision making narrative: Differential diagnosis considered: Hennessy virus, strep pharyngitis, allergic rhinitis, upper respiratory tract infection, sinusitis, rhinosinusitis, nasopharyngitis. viral pharyngitis, otitis media, otitis externa, pneumonia, bronchitis, viral cough syndrome, viral syndrome, and influenza. Exam findings show no acute concerns or changes; patient is non-toxic appearing and is in no distress. Patient is appropriate for outpatient treatment and follow-up. Lab Data Attestation: I reviewed the patient's lab results. Critical Care Time Critical Care Time Critical Care Time: No Discharge Plan Discharge Clinical Impression: Upper respiratory infection Patient Disposition: Home Condition: Stable Instructions: Upper Respiratory Infection (ED) Additional Instructions: Your COVID and flu tests are negative Viral illness may last between 7-21 days; antibiotics do not cure viral illness and are NOT recommended at this time. Recommend antihistamine such as Benadryl at night time and Zyrtec-D during the day Also, recommend symptomatic treatment includes: rest, fluids, and increase humidity of the air at home. Recommend Acetaminophen as directed on the bottle to reduce fever, pain, headache. Avoid smoking/second-hand smoke. Please schedule a follow-up visit with your personal physician for further evaluation and treatment within 3-5days. Including recheck and discussion of your blood pressure. If your symptoms persist, change or worsen significantly before you can contact your personal physician then please, without delay, go to the emergency department for further evaluation. Patient Language: Bahamian Prescriptions: New cetirizine-pseudoephedrine [Zyrtec-D] 5-120 mg tablet extended release 12 hr 1 tablet PO Q12H PRN (Reason: nasal congestion) Qty: 12 0RF No Action bupropion HCl 300 mg tablet extended release 24 hr 300 mg PO DAILY fluoxetine 40 mg capsule 40 mg PO QPM hydroxyzine HCl 25 mg tablet 25 mg PO DAILY lurasidone 40 mg tablet 40 mg PO DAILY atomoxetine [Strattera] 80 mg capsule 80 mg PO DAILY Follow-up/Referrals: UNKNOWN,DOCTOR [Primary Care Provider] - Stand Alone Forms: Work/School Release IP Time of Disposition: 11:10
[2024-05-17 10:31] VITALS: BP 139/87; PULSE 110; RESP 16; TEMP 36.4; O2SAT 100
[2024-05-17 11:08] LABS: EDCOVIDSCREEN Negative (Negative); EDINFLUASCREEN Negative (Negative); EDINFLUBSCREEN Negative (Negative)
== END 2024-05-17 11:18 | disposition home or self-care (01) ==
PROVIDERS: Emergency Provider Nurse Practitioner
DX: J06.9 Acute upper respiratory infection, unspecified (principal); Z20.822 Contact with and (suspected) exposure to COVID-19; F12.90 Cannabis use, unspecified, uncomplicated; F31.9 Bipolar disorder, unspecified
CPT/HCPCS: 87426; 87804; 99213; G0463

== ENCOUNTER 2024-10-20 14:15 | Emergency (ER) | payer BC, SELFPAY ==
[2024-10-20 14:25] VITALS: BP 138/74; PULSE 101; RESP 16; TEMP 36.7; O2SAT 98
--- NOTE | 2024-10-20 14:27 | ED.URI ---
HPI - URI/Sore Throat General Chief Complaint: Upper Respiratory Infection Stated Complaint: Sore Throat Time Seen by Provider: 10/20/24 14:28 Source: patient Mode of arrival: ambulatory Limitations: no limitations History of Present Illness HPI Narrative: 39-year-old female presents complaint of sore throat starting yesterday. Also reports left ear pain. Positive fatigue. Afebrile. Patient reports exudates throat. All systems reviewed and negative except as noted. Related Data Home Medications ?Medication ?Instructions ?Recorded ?Confirmed ?Last Taken ?Type atomoxetine 80 mg capsule 80 mg PO DAILY 05/17/24 05/17/24 Unknown History (Strattera) bupropion HCl 300 mg 24 hr tablet, 300 mg PO DAILY 05/17/24 05/17/24 Unknown History extended release fluoxetine 40 mg capsule 40 mg PO QPM 05/17/24 05/17/24 Unknown History hydroxyzine HCl 25 mg tablet 25 mg PO DAILY 05/17/24 05/17/24 Unknown History lurasidone 40 mg tablet 40 mg PO DAILY 05/17/24 05/17/24 Unknown History Allergies Allergy/AdvReac Type Severity Reaction Status Date / Time No Known Allergies Allergy Verified 10/20/24 14:17 [facility] Past Medical History Medical History Bipolar disorder Surgical History Surgical History No pertinent past surgical history Family History Family History Mother Family history of gallbladder disease Family history of rheumatoid arthritis Father Family history of gallbladder disease Sibling Family history of ulcerative colitis Other Diabetes mellitus Social History Social History Alcohol intake: current Substance use: former Substance use type: marijuana Living arrangements: with family Gender identity (if verbalized by the patient): Female Spiritual care concerns: No Comments At time of signature, agree with nursing past medical, surgical, social and family history. There is no relevant family history pertinent to the presenting complaint. Exam Narrative: GENERAL: This is a well-nourished, well-developed patient, in no apparent distress. HEAD: normocephalic, atraumatic. EYES: PERRL. Sclera clear/white. Vision is grossly intact. EARS: External ears normal, auditory canals clear and without drainage, TMs normal without perforation. Hearing grossly intact. NOSE: External nose normal with no obvious nasal discharge, nares without redness, no rhinorrhea. THROAT: Mucous membranes moist, Tonsils 2+ bilaterally with exudates NECK: Neck supple, non-tender without lymphadenopathy, masses or thyromegaly. CARDIOVASCULAR: Regular rate and rhythm without murmurs, gallops, or rubs. RESPIRATORY: Clear to auscultation. Breath sounds equal bilaterally. No wheezes, rales, or rhonchi. SKIN: warm, Dry, intact with no suspicious lesions or rash, good texture and turgor. NEURO: awake, alert, and oriented to person, place and time. There were no obvious focal neurologic abnormalities. EXTREMITIES: No joint tenderness, effusion, or edema noted. Course Course Level of Care: Express Care Visit Vital Signs Vital signs: Vital Signs Temperature 36.7 C 10/20/24 14:25 Pulse Rate 101 H 10/20/24 14:25 Respiratory Rate 16 10/20/24 14:25 Blood Pressure 138/74 10/20/24 14:25 Pulse Oximetry 98 10/20/24 14:25 Oxygen Delivery Room Air 10/20/24 14:25 Temperature 36.7 C 10/20/24 14:25 Pulse Rate 101 H 10/20/24 14:25 Respiratory Rate 16 10/20/24 14:25 Blood Pressure 138/74 10/20/24 14:25 Pulse Oximetry 98 10/20/24 14:25 Oxygen Delivery Room Air 10/20/24 14:25 reviewed MDM - URI/Sore Throat MDM Narrative Medical decision making narrative: negative rapid strep. Strep culture ordered. Will treat patient with antibiotic due to patient's exam findings. Patient agrees with plan of care. Differential Diagnosis Differential diagnosis: Likely upper respiratory infection, viral infection and pharyngitis Discharge Plan Discharge Clinical Impression: Acute tonsillitis Qualifiers: Pharyngitis/tonsillitis etiology: unspecified etiology Qualified Code(s): J03.90 - Acute tonsillitis, unspecified Patient Disposition: Home Condition: Stable Instructions: Antibiotic Form, Tonsillitis (ED) Additional Instructions: your strep test was negative today. Due to your exam findings I am prescribing an antibiotic today. Take antibiotic as prescribed until gone. Change toothbrush after taking antibiotic for 24 hours. Take ibuprofen or Tylenol every 6-8 hours as needed for pain. Drink plenty of water and rest. See your primary care physician if symptoms are not improving. Patient Language: Welsh Prescriptions: New amoxicillin 500 mg capsule 500 mg PO Q12H 10 Days Qty: 20 0RF No Action bupropion HCl 300 mg tablet extended release 24 hr 300 mg PO DAILY fluoxetine 40 mg capsule 40 mg PO QPM hydroxyzine HCl 25 mg tablet 25 mg PO DAILY lurasidone 40 mg tablet 40 mg PO DAILY atomoxetine [Strattera] 80 mg capsule 80 mg PO DAILY cetirizine-pseudoephedrine [Zyrtec-D] 5-120 mg tablet extended release 12 hr 1 tablet PO Q12H PRN (Reason: nasal congestion) Qty: 12 0RF Follow-up/Referrals: PHYSICIAN,BUSINESS SERVICES OFFICER [Primary Care Provider, Internal Medicine] Time of Disposition: 14:45
[2024-10-20 14:39] LABS: EDSTREPNEGPOS1 Negative (Negative)
== END 2024-10-20 14:50 | disposition home or self-care (01) ==
PROVIDERS: Emergency Provider Nurse Practitioner Family
DX: J03.90 Acute tonsillitis, unspecified (principal); F31.9 Bipolar disorder, unspecified
CPT/HCPCS: 87081; 87880; 99213; G0463

== ENCOUNTER 2024-11-15 13:57 | Emergency (ER) | payer BC, SELFPAY ==
[2024-11-15 14:08] VITALS: BP 125/78; PULSE 94; RESP 16; TEMP 36.6; O2SAT 97
[2024-11-15 14:36] LABS: EDCOVIDSCREEN Negative (Negative); EDINFLUASCREEN Negative (Negative); EDINFLUBSCREEN Negative (Negative)
--- NOTE | 2024-11-15 14:40 | ED.URI ---
HPI - URI/Sore Throat General Chief Complaint: Upper Respiratory Infection Stated Complaint: itchy throat/left ear pain Time Seen by Provider: 11/15/24 14:20 Source: patient and RN notes reviewed Mode of arrival: ambulatory Limitations: no limitations History of Present Illness HPI Narrative: 39 year old female patient presents today with a 2 day history of rhinorrhea, fatigue, left ear discomfort, sore throat, nasal congestion. Denies fever or shortness of breath. She is currently pain-free. She has tried Benadryl and Zyrtec without much improvement. No history of asthma or COPD. Related Data Home Medications ?Medication ?Instructions ?Recorded ?Confirmed ?Last Taken ?Type atomoxetine 80 mg capsule 80 mg PO DAILY 05/17/24 05/17/24 Unknown History (Strattera) bupropion HCl 300 mg 24 hr tablet, 300 mg PO DAILY 05/17/24 05/17/24 Unknown History extended release fluoxetine 40 mg capsule 40 mg PO QPM 05/17/24 05/17/24 Unknown History hydroxyzine HCl 25 mg tablet 25 mg PO DAILY 05/17/24 05/17/24 Unknown History lurasidone 40 mg tablet 40 mg PO DAILY 05/17/24 05/17/24 Unknown History metformin 500 mg tablet mg 11/15/24 Unknown History Allergies Allergy/AdvReac Type Severity Reaction Status Date / Time No Known Allergies Allergy Verified 11/15/24 14:04 REPLACED BY [facility] Past Medical History Medical History Bipolar disorder Surgical History Surgical History No pertinent past surgical history Family History Family History Mother Family history of gallbladder disease Family history of rheumatoid arthritis Father Family history of gallbladder disease Sibling Family history of ulcerative colitis Other Diabetes mellitus Social History Social History Alcohol intake: current Substance use: former Substance use type: marijuana Living arrangements: with family Gender identity (if verbalized by the patient): Female Spiritual care concerns: No Comments At time of signature, I have reviewed and agree with nursing past medical, surgical, social and family history unless otherwise noted. Please see nursing chart for further information. There is no relevant family history pertinent to the presenting complaint Exam Narrative: GENERAL: Mildly ill-appearing, well-nourished, and in no acute distress. HEAD: Normocephalic, atraumatic. EYES: EOMI. No redness or drainage. Conjunctivae normal. ENT: Mucous membranes pink and moist. Nares congested with rhinorrhea. TMs normal bilaterally. Throat normal with moderate amount of white postnasal drainage. Uvula midline. NECK: Normal AROM. Supple. Right posterior cervical chain lymphadenopathy CHEST: No respiratory distress. Clear to auscultation. HEART: Regular rate and rhythm. No murmur appreciated. EXTREMITIES: Normal range of motion. No edema. SKIN: Warm, dry, no rash. Capillary refill normal. Normal skin turgor. NEURO: No focal deficits. Alert and oriented x3. Gait steady. PSYCH: Normal affect. No signs of depression or anxiety. Course Course Level of Care: Express Care Visit Vital Signs Vital signs: Vital Signs Temperature 97.8 F 11/15/24 14:08 Pulse Rate 94 11/15/24 14:08 Respiratory Rate 16 11/15/24 14:08 Blood Pressure 125/78 11/15/24 14:08 Pulse Oximetry 97 11/15/24 14:08 Oxygen Delivery Room Air 11/15/24 14:08 Temperature 97.8 F 11/15/24 14:08 Pulse Rate 94 11/15/24 14:08 Respiratory Rate 16 11/15/24 14:08 Blood Pressure 125/78 11/15/24 14:08 Pulse Oximetry 97 11/15/24 14:08 Oxygen Delivery Room Air 11/15/24 14:08 Reviewed MDM - URI/Sore Throat MDM Narrative Medical decision making narrative: 39 year old female patient presents today with a 2 day history of rhinorrhea, fatigue, left ear discomfort, sore throat, nasal congestion. Denies fever or shortness of breath. Benadryl and Zyrtec without improvement. Upon exam, patient has some nasal congestion with postnasal drip. COVID-19 and influenza negative. Symptoms likely viral in etiology. Discussed [id number] medication use and duration of illness. No prescription medications indicated at this time. Anticipatory guidance given. Vital signs stable. Differential Diagnosis Differential diagnosis: Likely upper respiratory infection, otitis media, viral infection, influenza, pharyngitis and other (COVID-19) Lab Data Attestation: I reviewed the patient's lab results. Labs: Lab Results 11/15/24 Range/Units 14:13 POC Influenza A Ag Negative (Negative) POC Influenza B Ag Negative (Negative) POC SARS CoV-2 Ag Negative (Negative) Critical Care Time Critical Care Time Critical Care Time: No Discharge Plan Discharge Clinical Impression: Upper respiratory infection Qualifiers: URI type: unspecified URI Qualified Code(s): J06.9 - Acute upper respiratory infection, unspecified Patient Disposition: Home Condition: Stable Instructions: Upper Respiratory Infection (DC) Additional Instructions: Your COVID-19 and influenza swabs are negative today. Your Symptoms are likely due to a viral illness, which is not treated with antibiotics. Virus symptoms can last for up to 7-10days. Take Tylenol or ibuprofen for pain or fever, if able. You may consider using a steroid nasal spray such as Flonase to help with your congestion and sinus pressure. Rest and stay hydrated. Follow up with your PCP in 7 days if symptoms are not improving. Go to the ER immediately if you develop shortness of breath, difficulty swallowing, or any other concerning symptoms. Patient Language: Greenlandic Prescriptions: No Action bupropion HCl 300 mg tablet extended release 24 hr 300 mg PO DAILY fluoxetine 40 mg capsule 40 mg PO QPM hydroxyzine HCl 25 mg tablet 25 mg PO DAILY lurasidone 40 mg tablet 40 mg PO DAILY atomoxetine [Strattera] 80 mg capsule 80 mg PO DAILY cetirizine-pseudoephedrine [Zyrtec-D] 5-120 mg tablet extended release 12 hr 1 tablet PO Q12H PRN (Reason: nasal congestion) Qty: 12 0RF metformin 500 mg tablet Follow-up/Referrals: Tawnya,NU Chua [Primary Care Provider, Unknown] Time of Disposition: 14:43
== END 2024-11-15 14:46 | disposition home or self-care (01) ==
PROVIDERS: Emergency Provider Nurse Practitioner; PCP Nurse Practitioner Family
DX: J06.9 Acute upper respiratory infection, unspecified (principal); Z20.822 Contact with and (suspected) exposure to COVID-19; F31.9 Bipolar disorder, unspecified
CPT/HCPCS: 87426; 87804; 99212; G0463